=== PATIENT | male | born 1990 | race Caucasian/White ===

== ENCOUNTER 2024-02-05 13:26 | Inpatient (IN) ==
[2024-02-05] MEDS: KETOROLAC TROMETHAMINE 15 MG/ML VIAL IV STA (14:20)
[2024-02-05] MEDS: SODIUM CHLORIDE 0.9% 1,000 ML IV ONE (14:21)
[2024-02-05 15:02] LABS: Appearance Urine Clear (Clear); Bacteria Urine Automated None Seen (None Seen); Bilirubin Urine Negative (Negative); Blood Urine 3+ (Negative); Cast Urine Automated 0-2 /lpf (0-2); Color Urine Yellow; Epithelial Cell Urine Auto 0-2 /hpf (0-2); Glucose Urine UA Negative (Negative); Ketones Urine Trace (Negative); Leukocyte Esterase Urine Negative (Negative); Nitrite Urine Negative (Negative); Protein Urine Negative (Negative); RBC Urine Automated >20 /hpf (0-2); Specific Gravity Urine 1.022 (1.000-1.030); Urobilinogen Urine Negative (Negative); WBC Urine Automated 0-5 /hpf (0-5)
--- NOTE | 2024-02-05 15:02 | Emergency Department Note ---
Impression & Plan Ureterolithiasis, Acute right flank pain ED Provider Note NAME: NAJMA THORPE AGE: 34 SEX: M : 1990 ARRIVES VIA: Walk-In INFORMANT: Patient, ED PROVIDER(S): Brad Sylvester MD CHIEF COMPLAINT: Right-sided flank pain, possible kidney stone MEDICAL DECISION MAKING: Patient presents due to concern for right-sided flank pain IV was established and blood work was obtained. The patient did receive IV fluids IV Toradol and IV Zofran. CT abdomen pelvis performed along with urinalysis. Blood work shows a normal white count H&H and platelet count. The patient's kidney function is unremarkable. AST is 66. Urinalysis does show blood but no signs of infection. The patient CT abdomen pelvis does show 2 mm millimeter distal right ureteral calculus with mild right hydronephrosis. Gallstones noted along with fatty liver. No right upper quadrant pain. With informed the patient of the findings. The patient was still having associated pain and nausea with vomiting. Patient had initially been treated via triage protocols prior to me seeing the patient. The patient did receive IV morphine IV Zofran and IV fluids. Patient was still having pain and was ordered IV fentanyl and Reglan. Patient was still having vomiting. Given these concerns I did speak with the on-call hospital service Dr. Jones and the patient was admitted to medicine service Discussion w/ other healthcare providers: Dr. Jones inpatient medicine service Prior /Outside records reviewed: None Differential diagnosis: Renal colic, UTI, pyelonephritis, appendicitis, diverticulitis, strain, sprain, fracture among others were considered. Diagnostics, as interpreted by me: ECG: None Cardiac monitoring: An order was placed for continuous cardiac monitoring. The monitor shows a rate of 88 with sinus rhythm. Patient was placed on pulse oximetry Medical decision rules: None Imaging studies: I informally interpreted the patient's CT abdomen and pelvis that showed distal right ureteral stone with formal report to follow. HPI: Patient presents due to concern for right-sided flank pain associated nausea vomiting. Patient states that this started around lunchtime. The patient thought that he was having kidney stone but no prior history. No blood in the urine but has had increased urinary frequency. No falls or trauma. Patient denies any chest pain shortness of breath he had associated chills but no fevers. No dysuria. PAST MEDICAL HISTORY: See Below PAST SURGICAL HISTORY: See Below SOCIAL HISTORY: See Below HOME MEDICATIONS: See Below ALLERGIES: See Below VITALS: See Below PHYSICAL EXAMINATION: GENERAL: Mildly ill in appearance with an emesis bag in hand. EYE EXAM: Normal conjunctiva. PERRL, no anisocoria and EOM's grossly intact w/o pain. OROPHARYNX: Moist mucus membranes, grossly normal dentition. NECK: Trachea midline, no stridor. Supple, no nuchal rigidity, no adenopathy, non-tender. No signs of meningismus. FROM of the neck with good chin to chest and neck extension. LUNGS: Clear to auscultation. Normal chest wall mechanics. HEART: NSR, no MRG. ABDOMEN: Abdomen soft, right lower abdominal pain, no masses, no rebound or guarding. BACK: Right-sided CVA TTP. No midline pain. SKIN: No rashes and no bruising. UPPER EXTREMITIES: Upper extremities are grossly normal. LOWER EXTREMITIES: Grossly normal, no edema. NEURO EXAM: A&O x3, cranial nerves II-XII grossly intact, normal speech, moves all 4 extremities. Past Med/Surg History Problem List Vitamin D deficiency Elevated transaminase level Acute right flank pain (Acute) Ureterolithiasis (Acute) Plica syndrome of right knee Patellofemoral arthralgia of right knee Acute medial meniscus tear of right knee Atopic dermatitis Medical History Lyme disease (01/2021) Surgical History History of appendectomy (2009) Family History Grandfather (Maternal) Lung cancer Grandfather (Paternal) No problems noted. Grandmother (Paternal) Diabetes Uncle Diabetes Father Elevated PSA Mother No problems noted. 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 Required: No Beliefs That Will Affect Care: None marital status: Current Living Situation: Spouse current occupational status: employed How many Children do You have: 0 How many Children do You have 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: Yes Safety Concerns: Feels Safe At This Time Childhood Exposure to Second-Hand Smoke: No Diet: regular Diet Comment: regular caffeine: Yes (coffee- tea ) during the past year weight has: remained stable Dental Care, Regularly: Yes Physical Activity Frequency: Daily 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 Sunscreen Use: Yes Assistive Devices: None Allergies Allergies Allergy/AdvReac Type Severity Reaction Status Date / Time apple Allergy Intermediate UPSET Verified 02/22/23 06:59 STOMACH, VOMITING house dust Allergy Intermediate SNEEZING, Verified 02/22/23 06:59 CONGESTION mold Allergy Intermediate SNEEZING, Verified 02/22/23 06:59 CONGESTION No Known Drug Allergies Allergy Unknown Unverified 02/22/23 07:08 Home Meds Home Medications Medication Instructions Recorded Confirmed acetaminophen 500 mg tablet 1,000 mg PO DIRECTED PRN 02/06/21 02/22/23 (Tylenol Extra Strength) FEVER/PAIN naproxen 500 mg tablet 500 mg PO BID PRN pain 02/22/23 Previous Rx's Medication Instructions Recorded ondansetron HCl 4 mg tablet 4 mg PO TID PRN nausea and 02/05/24 vomiting 5 days #15 tabs oxycodone 5 mg tablet 5 mg PO Q8H PRN pain #6 tabs 02/05/24 tamsulosin 0.4 mg capsule (Flomax) 0.4 mg PO HS #5 caps 02/05/24 Results & Data (ED) Vital Signs Vital Signs - 24 hr 02/05/24 13:28 Temperature 36.3 C L Temperature Source Temporal Artery Scan Pulse Rate 92 H Respiratory Rate 20 Blood Pressure 148/92 H Blood Pressure Mean 110 Pulse Oximetry 99 Sepsis Recent Fever Within 48 Hours No Sepsis New/Unexplained Change in Mental Status N/A Sepsis Action Taken by Nursing No Action Required Home Medications Current Medication List: was personally reviewed by me Laboratory Data Attestation: I reviewed the patient's lab results. 02/05/24 14:22 02/06/24 08:06 Lab Results 02/05/24 02/05/24 Range/Units 14:17 14:22 WBC 5.28 (4.8-10.8) K/ul RBC 5.02 (4.70-6.10) M/uL Hgb 15.1 (14.0-18.0) g/dl Hct 44.3 (42.0-52.0) % MCV 88.2 (80.0-100.0) fL MCH 30.1 (25.0-34.0) pg MCHC 34.1 (32.0-36.0) g/dL RDW Std Deviation 39.6 (36.4-46.3) fL RDW Coeff of Sandra 12.3 (11.5-14.5) % Plt Count 290 (130-400) K/uL MPV 9.5 (9.4-12.4) fL Immature Gran % (Auto) 1.5 % Neut % (Auto) 50.2 % Lymph % (Auto) 33.3 % [place] % (Auto) 12.1 % Eos % (Auto) 2.5 % Baso % (Auto) 0.4 % Neut # (Auto) 2.65 (1.40-6.50) K/uL Lymph # (Auto) 1.76 (1.20-3.40) K/uL [place] # (Auto) 0.64 H (0.11-0.59) K/uL Eos # (Auto) 0.13 (0.00-0.50) K/uL Baso # (Auto) 0.02 (0.00-0.20) K/uL Immature Gran # (Auto) 0.08 (0.01-0.20) K/uL Sodium 141 (136-145) mmol/L Potassium 3.7 (3.5-5.1) mmol/L Chloride 103 (98-107) mmol/L Carbon Dioxide 30 (21-32) mmol/L Anion Gap 8 (3-11) BUN 10 (6-23) mg/dl Creatinine 1.03 (0.6-1.4) mg/dl Est Cr Clr Drug Dosing 133.5 ml/min Est GFR ( Amer) 110.1 ml/min Est GFR (Non-Af Amer) 95.0 ml/min BUN/Creatinine Ratio 9.7 L (10-20) Glucose 128 H (70-99(Fasting)) mg/dl Calcium 10.0 (8.6-10.3) mg/dl Total Bilirubin 0.7 (0.2-1.0) mg/dl AST 34 (13-39) U/L ALT 66 H (7-52) U/L Alkaline Phosphatase 76 (34-104) U/L Total Protein 7.5 (6.0-8.3) gm/dl Albumin 4.6 (3.4-5.0) gm/dl Globulin 2.9 (2.5-4.0) gm/dl Albumin/Globulin Ratio 1.6 (0.9-2) Urine Color Yellow Urine Appearance Clear (Clear) Urine pH 5.0 (4.5-7.5) Ur Specific [place] 1.022 (1.000-1.030) Urine Protein Negative (Negative) Urine Glucose (UA) Negative (Negative) Urine Ketones Trace H (Negative) Urine Blood 3+ H (Negative) Urine Nitrite Negative (Negative) Urine Bilirubin Negative (Negative) Urine Urobilinogen Negative (Negative) Ur Leukocyte Esterase Negative (Negative) Urine WBC (Auto) 0-5 (0-5) /hpf Urine RBC (Auto) >20 H (0-2) /hpf U Hyaline Cast (Auto) 0-2 (0-2) /lpf U Epithel Cells (Auto) 0-2 (0-2) /hpf Urine Bacteria (Auto) None Seen (None Seen) Administered Medications Acetaminophen (Acetaminophen 500 Mg Tab) 1,000 mg PO Q8H [facility] Stop: 03/06/24 21:59 Last Admin: 02/06/24 05:24 Dose: 1,000 mg Documented By: Admin: 02/05/24 22:07 Dose: 1,000 mg Documented By: PLF Hydromorphone HCl (Hydromorphone Inj 0.5 Mg/0.5 Ml Syr) 0.5 mg IV Q2H PRN PRN Reason: Pain <6/10 Stop: 02/19/24 21:21 Last Admin: 02/06/24 07:18 Dose: 0.5 mg Documented By: Admin: 02/05/24 23:03 Dose: 0.5 mg Documented By: MAI Lactated Ringer's (Lr) 1,000 mls @ 125 mls/hr IV .Q8H ARJUN Stop: 02/06/24 18:57 Last Admin: 02/06/24 04:37 Dose: 150 mls/hr Documented By: Infusion: 02/06/24 04:37 Dose: Infused Documented By: Admin: 02/05/24 22:08 Dose: 150 mls/hr Documented By: PLF Melatonin (Melatonin 3 Mg Tab) 3 mg PO HS PRN PRN Reason: Insomnia Stop: 03/06/24 21:21 Last Admin: 02/05/24 22:07 Dose: 3 mg Documented By: PLF Discontinued Medications Fentanyl Citrate (Fentanyl Citrate Pf 100 Mcg/2 Ml Vial) 75 mcg IV NOW STA Stop: 02/05/24 17:58 Last Admin: 02/05/24 18:38 Dose: 75 mcg Documented By: DAMIEN Sodium Chloride (Nss) 500 mls @ 999 mls/hr IV .Q31M STA Stop: 02/05/24 14:03 Last Infusion: 02/05/24 15:29 Dose: Infused Documented By: Admin: 02/05/24 15:29 Dose: 999 mls/hr Documented By: ALLEY Sodium Chloride (Nss) 1,000 mls @ 999 mls/hr IV .Q1H1M ONE Stop: 02/05/24 15:10 Last Infusion: 02/05/24 15:29 Dose: Infused Documented By: Admin: 02/05/24 14:21 Dose: 999 mls/hr Documented By: CARLOS Sodium Chloride (Nss) 500 mls @ 999 mls/hr IV .Q31M ONE Stop: 02/05/24 17:36 Last Infusion: 02/05/24 18:46 Dose: Infused Documented By: Admin: 02/05/24 17:16 Dose: 999 mls/hr Documented By: DAMIEN Prochlorperazine (Compazine) 2 mls @ 1 mls/min IV ONE ONE Stop: 02/05/24 17:58 Last Admin: 02/05/24 18:38 Dose: 1 mls/min Documented By: DAMIEN Ketorolac Tromethamine (Ketorolac Tromethamine 15 Mg/Ml Vial) 15 mg IV ONE STA Stop: 02/05/24 13:34 Last Admin: 02/05/24 14:20 Dose: 15 mg Documented By: CARLOS Ketorolac Tromethamine (Ketorolac 30 Mg/Ml Vial) 30 mg IV NOW ONE Stop: 02/05/24 20:21 Last Admin: 02/05/24 20:41 Dose: 30 mg Documented By: DAMIEN Morphine Sulfate (Morphine Sulfate 10 Mg/Ml Carp/Vial) 6 mg IV NOW STA Stop: 02/05/24 17:07 Last Admin: 02/05/24 17:15 Dose: 6 mg Documented By: DAMIEN Ondansetron HCl (Ondansetron Inj 2 Mg/Ml 2 Ml Vial) 4 mg IV NOW STA Stop: 02/05/24 17:07 Last Admin: 02/05/24 17:15 Dose: 4 mg Documented By: DAMIEN Imaging Data Radiologist's Impression: Abdomen/Pelvis CT 02/05/24 14:10 CT OF THE ABDOMEN AND PELVIS WITHOUT CONTRAST CLINICAL HISTORY: Right flank pain. COMPARISON STUDY: Right upper quadrant ultrasound June 24, 2012 and MRCP August 05, 2012. TECHNIQUE: Axial images of the abdomen and pelvis were obtained without IV contrast. Images were reviewed in the axial, sagittal, and coronal planes. Automated exposure control was utilized for the study. A dose lowering technique was utilized adhering to the principles of ALARA. FINDINGS: Lung bases are unremarkable. No pneumatosis, free air or portal venous gas is present. A small 2 mm distal right ureteral calculus just proximal to the ureterovesical juncture results in mild right hydronephrosis. No additional urinary calculi identified. Small gallstone within the gallbladder is present. The gallbladder is not distended. There is no pericholecystic infiltration. Hepatic steatosis is noted with geographic areas of sparing. Unenhanced images of the spleen, adrenal glands and pancreas are unremarkable. The appendix is not visualized. There is no evidence for a bowel obstruction. Submucosal fat deposition within the colon is chronic. There is no lymphadenopathy. IMPRESSION: 1. 2 mm distal right ureteral calculus results in mild right hydronephrosis. 2. Cholelithiasis. 3. Hepatic steatosis. ACT 112: Negative or not required by law. Electronically signed by: Felix Armstrong M.D. 02/05/2024 4:21 PM Discharge Plan Visit Data Chief Complaint: Urinary Symptoms Stated Complaint: possible kidney stone, back pain, frequent urinati ED Provider: Brad Sylvester Discharge Problem: Ureterolithiasis, Acute right flank pain Patient Disposition: Admitted As Inpatient Discharge Instructions Interventions: ED Discharge Assessment Last Done: 02/05/24 20:25
[2024-02-05 15:06] LABS: Albumin Globulin Ratio 1.6 (0.9-2); Albumin Level 4.6 gm/dl (3.4-5.0); BUN Creatinine Ratio 9.7 (10-20); Bilirubin,Total 0.7 mg/dl (0.2-1.0); Creatinine Clr Calc Pharmacy 133.5 ml/min; Est GFR (African American) 110.1 ml/min; Globulin 2.9 gm/dl (2.5-4.0); Potassium 3.7 mmol/L (3.5-5.1); Total Protein 7.5 gm/dl (6.0-8.3)
[2024-02-05 15:18] LABS: Basophils # (auto) 0.02 K/uL (0.00-0.20); Basophils % (auto) 0.4 %; Eosinophils # (auto) 0.13 K/uL (0.00-0.50); Eosinophils % (auto) 2.5 %; Hematocrit (blood only) 44.3 % (42.0-52.0); Hemoglobin 15.1 g/dl (14.0-18.0); Immature Granulocytes # (auto) 0.08 K/uL (0.01-0.20); Immature Granulocytes % (auto) 1.5 %; Lymphocytes # (auto) 1.76 K/uL (1.20-3.40); Lymphocytes % (auto) 33.3 %; Mean Corpuscular Hemoglobin 30.1 pg (25.0-34.0); Mean Corpuscular Hgb Conc 34.1 g/dL (32.0-36.0); Mean Corpuscular Volume 88.2 fL (80.0-100.0); Mean Platelet Volume 9.5 fL (9.4-12.4); Monocytes # (auto) 0.64 K/uL (0.11-0.59); Monocytes % (auto) 12.1 %; Neutrophils # (auto) 2.65 K/uL (1.40-6.50); Neutrophils % (auto) 50.2 %; Platelet Count 290 K/uL (130-400); RDW Coefficient of Variation 12.3 % (11.5-14.5); RDW Standard Deviation 39.6 fL (36.4-46.3); Red Blood Count 5.02 M/uL (4.70-6.10); White Blood Count 5.28 K/ul (4.8-10.8)
[2024-02-05] MEDS: SODIUM CHLORIDE 0.9% 500 ML IV STA (15:29)
--- NOTE | 2024-02-05 16:22 | CT Scan Report ---
CT OF THE ABDOMEN AND PELVIS WITHOUT CONTRAST CLINICAL HISTORY: Right flank pain. COMPARISON STUDY: Right upper quadrant ultrasound June 24, 2012 and MRCP August 05, 2012. TECHNIQUE: Axial images of the abdomen and pelvis were obtained without IV contrast. Images were revi ewed in the axial, sagittal, and coronal planes. Automated exposure control was utilized for the brianna dy. A dose lowering technique was utilized adhering to the principles of ALARA. FINDINGS: Lung bases are unremarkable. No pneumatosis, free air or portal venous gas is present. A sm all 2 mm distal right ureteral calculus just proximal to the ureterovesical juncture results in mild right hydronephrosis. No additional urinary calculi identified. Small gallstone within the gallbladde r is present. The gallbladder is not distended. There is no pericholecystic infiltration. Hepatic chavez atosis is noted with geographic areas of sparing. Unenhanced images of the spleen, adrenal glands and pancreas are unremarkable. The appendix is not visualized. There is no evidence for a bowel obstruct ion. Submucosal fat deposition within the colon is chronic. There is no lymphadenopathy. IMPRESSION: 1. 2 mm distal right ureteral calculus results in mild right hydronephrosis. 2. Cholelithiasis. 3. Hepatic steatosis. ACT 112: Negative or not required by law. Electronically signed by: Felix Armstrong M.D. 02/05/2024 4:21 PM
[2024-02-05] MEDS: ONDANSETRON INJ 2 MG/ML 2 ML VIAL IV STA (17:15)
[2024-02-05] MEDS: MoRPHine SULFATE 10 MG/ML CARP/VIAL IV STA (17:15)
[2024-02-05] MEDS: SODIUM CHLORIDE 0.9% 500 ML IV ONE (17:16)
--- NOTE | 2024-02-05 18:35 | History & Physical Report ---
Date of Service February 05, 2024 Assessment & Plan (1) Ureterolithiasis: (2) Acute right flank pain: (3) Elevated transaminase level: Plan 34 yo male no significant PMHx presented to ED with R sided flank pain and nausea that began this afternoon around lunchtime found to have 2mm ureterolith in distal portion of the R ureter with mild R hydronephrosis. #Ureterolithiasis Pain control Tylenol 1000mg Q8h danie; Toradol 15mg q6h PRN, Dilaudid 1mg q2h PRN Flomax Strain urine monitor kidney fx anticipate spontaneous passage #Elevated AST Gallstones identified on CT Asymptomatic, follw as outpatient FENGI: regular Code status: full DVT prophylaxis: encourage ambulation Isolation: none Disposition: med/surg History of Present Illness Primary Care Provider: Amaya Jung DO 34 yo male presented to ED with R sided flank pain and nausea that began this afternoon around lunchtime found to have 2mm ureterolith in distal portion of the R ureter with mild R hydronephrosis. No history of kidney stones in the past. No gross hematuria. ED Course: CTAP with above findings UA + for blood, otherwise negative for signs of infection Rec'd morphine, zofran, IVF, compazine, fentanyl AST elevated at 66, gallstones + hepatosteatosis noted on CT Allergies Allergy/AdvReac Type Severity Reaction Status Date / Time apple Allergy Intermediate UPSET Verified 02/22/23 06:59 STOMACH, VOMITING house dust Allergy Intermediate SNEEZING, Verified 02/22/23 06:59 CONGESTION mold Allergy Intermediate SNEEZING, Verified 02/22/23 06:59 CONGESTION No Known Drug Allergies Allergy Unknown Unverified 02/22/23 07:08 Home Medications Medication Instructions Recorded Confirmed Type acetaminophen 500 mg tablet 1,000 mg PO DIRECTED PRN 02/06/21 02/22/23 History (Tylenol Extra Strength) FEVER/PAIN naproxen 500 mg tablet 500 mg PO BID PRN pain 02/22/23 History ondansetron HCl 4 mg tablet 4 mg PO TID PRN nausea and 02/05/24 Rx vomiting 5 days #15 tabs oxycodone 5 mg tablet 5 mg PO Q8H PRN pain #6 tabs 02/05/24 Rx tamsulosin 0.4 mg capsule (Flomax) 0.4 mg PO HS #5 caps 02/05/24 Rx Past Med/Surg History Problem List (Updated 02/05/24 @ 18:34 by Suleiman Woodard DO) Elevated transaminase level Acute right flank pain (Acute) Ureterolithiasis (Acute) Plica syndrome of right knee Patellofemoral arthralgia of right knee Acute medial meniscus tear of right knee Atopic dermatitis Medical History Atopic dermatitis Lyme disease (01/2021) Surgical History History of appendectomy (2009) Family History Grandfather (Maternal) Lung cancer Grandfather (Paternal) No problems noted. Grandmother (Paternal) Diabetes Uncle Diabetes Father Elevated PSA Mother No problems noted. Denies family history of Ovarian cancer Prostate cancer Myocardial infarction Breast cancer Colorectal cancer Social History Smoking Status: Never smoker Second Hand Exposure: No; Do You Dip or Chew Tobacco: No; Hx Alcohol Use: Yes Alcohol type: beer Alcohol Intake Frequency: 2-3 x/Week Hx Substance Use: No Preferred Language: Mohawk Communication Ability: Effective Visual Impairment: No Limitations Hearing Ability: Normal Pad Machine Operator Required: No Beliefs That Will Affect Care: None marital status: Current Living Situation: Spouse current occupational status: employed How many Children do You have: 0 How many Children do You have 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[employer] Feels Safe at Home: Yes Safety Concerns: Feels Safe At This Time Childhood Exposure to Second-Hand Smoke: No Diet: regular Diet Comment: regular caffeine: Yes (coffee- tea ) during the past year weight has: remained stable Dental Care, Regularly: Yes Physical Activity Frequency: Daily 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 Sunscreen Use: Yes Assistive Devices: None Review of Systems Review of Systems: reviewed, per HPI Physical Exam Physical Exam: Constitutional: well-appearing, appears uncomfortable HEENT: NCAT CV: extremities well-perfused, no LE edema Resp: no increased work of breathing GI: soft, nondistended, nontender MSK: no gross deformities appreciated Skin: warm, dry, no rash appreciated Neuro: alert, oriented, no focal neurologic deficit appreciated Results & Data Results & Data Vital Signs (Past 12 Hours) Vital Signs Temp Pulse Resp BP Pulse Ox 02/05/24 13:28 36.3 C L 92 H 20 148/92 H 99 Supervising Physician Co-Signing Physician Notes I personally saw and examined the patient. I verified all [place] points and agree with resident physician Dr Woodard, with the following exceptions and/or additions: 34 year old male presents to the ER with right flank pain starting around lunchtime today. O/E HS RRR, no murmurs, Chest CTAB, Abdo SNT, right CVA tenderness A/P Ureterolithiasis - IV fluids, regular acetaminophen, Toradol 2nd line, Dilaudid 3rd line, strain all urine Resident Activity Tracking Resident Involvement: Resident Care Provided Care Provided: Adult Hospital Medicine
[2024-02-05] MEDS: PROCHLORPERAZINE 2 ML IV ONE (18:38)
[2024-02-05] MEDS: fentaNYL citrate PF 100 MCG/2 ML VIAL IV STA (18:38)
[2024-02-05] MEDS: KETOROLAC 30 MG/ML VIAL IV ONE (20:41)
[2024-02-05] MEDS ORDERED: ALUMINUM/MAGNESIUM SUSP 30 ML UDC PO PRN (21:22)
[2024-02-05] MEDS ORDERED: KETOROLAC 30 MG/ML VIAL IV PRN (21:22)
[2024-02-05] MEDS ORDERED: ONDANSETRON INJ 2 MG/ML 2 ML VIAL IV PRN (21:22)
[2024-02-05] MEDS ORDERED: POLYETHYLENE (MIRALAX) 17 GM PACK PO PRN (21:22)
[2024-02-05] MEDS ORDERED: ACETAMINOPHEN 325 MG TAB PO PRN (21:22)
[2024-02-05] MEDS ORDERED: MAGNESIUM HYDROXIDE SUSP 30 ML UDC PO PRN (21:22)
[2024-02-05] MEDS: ACETAMINOPHEN 500 MG TAB PO SCH (22:07)
[2024-02-05] MEDS: MELATONIN 3 MG TAB PO PRN (22:07)
[2024-02-05] MEDS: LACTATED RINGER'S 1,000 ML IV SCH (22:08)
[2024-02-05] MEDS: HYDROmorphone INJ 0.5 MG/0.5 ML SYR IV PRN (23:03)
--- NOTE | 2024-02-06 08:00 | Hospitalist Progress Note ---
Date of Service February 06, 2024 Assessment & Plan (1) Ureterolithiasis: Plan: 34 yo male no significant PMHx presented to ED with R sided flank pain and nausea that began afternoon 6/12 around lunchtime CTAP w/ 2mm ureterolith in distal portion of the R ureter with mild R hydronephrosis. Placed on IVF, pain control on admission Cr bumped to 1.45 today. BUN15 (was 10). No fever to suggest infection at this time but can monitor/repeat urine if needed Toradol placed on hold (was provided 15mg IV x 1, 30mg IV x 1 on admission) Dilaudid IV available, added PO oxycodone to avoid NSAIDs given ANURADHA Continue IVF Monitor I&O Continue to srain urine, send stone for analysis as able Encouraged avoidance of teas, can try lemonade to help to dissolve Flomax 0.4mg x 1 now (however limited benefit in stones >5mm but will try), continue daily Consult placed for Urology given ANURADHA however will avoid nephrotoxins at present time/renal dose meds as able and continue IVF and expulsive therapy and hopefully able to pass w/ conservative management Vit D level checked given kidney stone (although no prior hx, but does have gallstones) and was low, replacement ordered. Monitor labs/renal function/output Discussed if able to pass stone tonight could consider discharge with outpatient follow up but will monitor at this time (2) Acute right flank pain: Plan: suspect 2nd to stone as above does have kidney stones but no scapular pain and no RUQ pain on exam but will monitor (3) Elevated transaminase level: Plan: #Elevated AST (?alcohol use, will need to inquire) Gallstones identified on CT Asymptomatic, follow as outpatient can monitor w/ AM labs (4) Vitamin D deficiency: Plan: checked due to ca borderline 10.0 w/ stone and normal albumin. Vit D LOW 13.3, po replacement started/continue at dc (5) Acute kidney injury: Plan: Cr to 1.45 w/ normal baseline IVF as above, avoid nephrotoxins DC'd further NSAIDs Repeat UA ordered but no fever and no abx at this time Urology consulted as above BMP in AM (or sooner if potential dc) Plan continued inpatient stay for now but if able to pass stone/pain resolved following can plan for potential dc tonight. urology consulted to weigh in given Anuradha but again stone is very small and hopefully Peyman able to pass this on his own Admission and Anticipated Discharge Date Admission Date: February 05, 2024 Supervising Physician Co-Signing Physician Notes The patient was not seen by me. The chart was reviewed. Case discussed with RODRIGO Avelar. Agree with assessment and plan Subjective Evaluated this morning, sitting up in bed, tolerating diet. Pain about 5/10, R sided CVA tenderness. Making good urine but not passing stone just yet. Discussed consult placed for urology however had not been provided flomax and hopefully continued IVF and expulsive therapy and if able to pass stone on own can dc later this afternoon. Can repeat labs to ensure renal function improved prior to dc but discussed avoiding further toradol for now. No prior hx kidney stones. Does like tea, raspberry, has had increased caffeine intake w/ of child recently too. Encouraged avoiding excessive tea, encourage lemonade to help dissolve. Nursing continuing to strain urine at this time. No fever/chills, chest pain, shortness of breath. Questions/concerns addressed at this time. Physical Exam Physical Exam: Constitutional: 34yo male sitting up in bed, NAD, reports feeling a little better but still hasn't passed stone Head atraumatic, normocephalic, mmm, trachea midline Resp: even/unlabored, no w/c/r, on room air CV: RRR, no pitting edema/calf tenderness GI: +BS, soft/NT : R CVA tenderness, no oscar MSK/Neuro: non focal, answering questions, no slurred speech/facial droop Psych: AOx3, cooperative with exam Results & Data Results & Data Vital Signs (Past 12 Hours) Vital Signs Temp Pulse Resp BP Pulse Ox O2 Del Method 02/05/24 21:51 36.7 C 75 16 145/75 H 95 Room Air 02/05/24 20:43 65 18 134/72 96 Room Air 02/05/24 20:25 Room Air Laboratory Results 02/06/24 02/05/24 02/05/24 Range/Units 08:06 14:22 14:17 WBC 5.28 (4.8-10.8) K/ul RBC 5.02 (4.70-6.10) M/uL Hgb 15.1 (14.0-18.0) g/dl Hct 44.3 (42.0-52.0) % MCV 88.2 (80.0-100.0) fL MCH 30.1 (25.0-34.0) pg MCHC 34.1 (32.0-36.0) g/dL RDW Std Deviation 39.6 (36.4-46.3) fL RDW Coeff of Sandra 12.3 (11.5-14.5) % Plt Count 290 (130-400) K/uL MPV 9.5 (9.4-12.4) fL Immature Gran % (Auto) 1.5 % Neut % (Auto) 50.2 % Lymph % (Auto) 33.3 % Dewey % (Auto) 12.1 % Eos % (Auto) 2.5 % Baso % (Auto) 0.4 % Neut # (Auto) 2.65 (1.40-6.50) K/uL Lymph # (Auto) 1.76 (1.20-3.40) K/uL Dewey # (Auto) 0.64 H (0.11-0.59) K/uL Eos # (Auto) 0.13 (0.00-0.50) K/uL Baso # (Auto) 0.02 (0.00-0.20) K/uL Immature Gran # (Auto) 0.08 (0.01-0.20) K/uL Sodium 139 141 (136-145) mmol/L Potassium 4.1 3.7 (3.5-5.1) mmol/L Chloride 105 103 (98-107) mmol/L Carbon Dioxide 29 30 (21-32) mmol/L Anion Gap 5 8 (3-11) BUN 15 10 (6-23) mg/dl Creatinine 1.45 H D 1.03 (0.6-1.4) mg/dl Est Cr Clr Drug Dosing 95.1 133.5 ml/min Est GFR ( Amer) 72.8 110.1 ml/min Est GFR (Non-Af Amer) 62.8 95.0 ml/min BUN/Creatinine Ratio 10.3 9.7 L (10-20) Glucose 121 H 128 H (70-99(Fasting)) mg/dl Calcium 8.8 10.0 (8.6-10.3) mg/dl Magnesium 1.7 (1.7-2.4) mg/dl Total Bilirubin 0.7 (0.2-1.0) mg/dl AST 34 (13-39) U/L ALT 66 H (7-52) U/L Alkaline Phosphatase 76 (34-104) U/L Total Protein 7.5 (6.0-8.3) gm/dl Albumin 4.6 (3.4-5.0) gm/dl Globulin 2.9 (2.5-4.0) gm/dl Albumin/Globulin Ratio 1.6 (0.9-2) 25-OH Vitamin D Total 13.3 L (30-100) ng/ml Urine Color Yellow Urine Appearance Clear (Clear) Urine pH 5.0 (4.5-7.5) Ur Specific Aylett 1.022 (1.000-1.030) Urine Protein Negative (Negative) Urine Glucose (UA) Negative (Negative) Urine Ketones Trace H (Negative) Urine Blood 3+ H (Negative) Urine Nitrite Negative (Negative) Urine Bilirubin Negative (Negative) Urine Urobilinogen Negative (Negative) Ur Leukocyte Esterase Negative (Negative) Urine WBC (Auto) 0-5 (0-5) /hpf Urine RBC (Auto) >20 H (0-2) /hpf U Hyaline Cast (Auto) 0-2 (0-2) /lpf U Epithel Cells (Auto) 0-2 (0-2) /hpf Urine Bacteria (Auto) None Seen (None Seen) Diagnostic Findings Abdomen/Pelvis CT 02/05/24 14:10 CT OF THE ABDOMEN AND PELVIS WITHOUT CONTRAST CLINICAL HISTORY: Right flank pain. COMPARISON STUDY: Right upper quadrant ultrasound June 24, 2012 and MRCP August 05, 2012. TECHNIQUE: Axial images of the abdomen and pelvis were obtained without IV contrast. Images were reviewed in the axial, sagittal, and coronal planes. Automated exposure control was utilized for the study. A dose lowering technique was utilized adhering to the principles of ALARA. FINDINGS: Lung bases are unremarkable. No pneumatosis, free air or portal venous gas is present. A small 2 mm distal right ureteral calculus just proximal to the ureterovesical juncture results in mild right hydronephrosis. No additional urinary calculi identified. Small gallstone within the gallbladder is present. The gallbladder is not distended. There is no pericholecystic infiltration. Hepatic steatosis is noted with geographic areas of sparing. Unenhanced images of the spleen, adrenal glands and pancreas are unremarkable. The appendix is not visualized. There is no evidence for a bowel obstruction. Submucosal fat deposition within the colon is chronic. There is no lymphadenopathy. IMPRESSION: 1. 2 mm distal right ureteral calculus results in mild right hydronephrosis. 2. Cholelithiasis. 3. Hepatic steatosis. ACT 112: Negative or not required by law. Electronically signed by: Felix Armstrong M.D. 02/05/2024 4:21 PM PG Care Time/CCT Total # of Minutes Spent Total Time Spent with Patient: Total time spent is greater than 50% in coordination of care (as documented) at patient's floor/unit and/or counseling patient: Coding Level of Care Code 89944 SUB INP/OBS CARE 2/35MIN Diagnoses Ureterolithiasis N20.1 Acute right flank pain R10.9 Elevated transaminase level R74.01 Vitamin D deficiency E55.9 Acute kidney injury N17.9
--- NOTE | 2024-02-06 08:28 | Billing Data ---
Date of Service February 05, 2024 Coding Level of Care Code 48364 INT INP/OBS CARE
[2024-02-06 08:47] LABS: BUN Creatinine Ratio 10.3 (10-20); Calcium 8.8 mg/dl (8.6-10.3); Creatinine Clr Calc Pharmacy 95.1 ml/min; Est GFR (African American) 72.8 ml/min; Est GFR (Non-African American) 62.8 ml/min; Magnesium 1.7 mg/dl (1.7-2.4); Potassium 4.1 mmol/L (3.5-5.1)
[2024-02-06] MEDS: TAMSULOSIN HCL 0.4 MG CAP PO ONE (11:13)
[2024-02-06] MEDS: oxyCODONE HCL IR 5 MG TAB (IMMEDIATE RELEASE) PO PRN ×2 (11:17→16:13)
[2024-02-06] MEDS: HYDROmorphone INJ 1 MG/ML SYRINGE IV PRN (12:53)
[2024-02-06] MEDS ORDERED: oxyBUTYnin chloride 5 MG TAB PO PRN (13:40)
[2024-02-06 13:48] LABS: Appearance Urine Clear (Clear); Bilirubin Urine Negative (Negative); Blood Urine Negative (Negative); Color Urine Yellow; Glucose Urine UA Negative (Negative); Ketones Urine Negative (Negative); Leukocyte Esterase Urine Negative (Negative); Nitrite Urine Negative (Negative); Protein Urine Negative (Negative); Specific Gravity Urine 1.009 (1.000-1.030); Urobilinogen Urine Negative (Negative); pH Urine 7.5 (4.5-7.5)
[2024-02-06] MEDS ORDERED: HYDROmorphone INJ 0.5 MG/0.5 ML SYR IV PRN (14:18)
--- NOTE | 2024-02-06 15:51 | XRay Report ---
KUB CLINICAL HISTORY: Kidney stone. COMPARISON STUDY: CT of the abdomen and pelvis February 05, 2024. FINDINGS: Bowel gas pattern is normal. No renal calculi are present. Pelvic calcifications favor phle boliths. The small 2 mm distal right ureteral calculus shown on CT of February 05, 2024 is not definitive ly identified although may be occult by radiography. IMPRESSION: No urinary calculi identified. The 2 mm distal right ureteral calculus on CT is not evid ent on this study although could be radiographically occult. ACT 112: Negative or not required by law. Electronically signed by: Felix Armstrong M.D. 02/06/2024 3:47 PM
--- NOTE | 2024-02-06 15:58 | Urology Consultation ---
Date of Consultation February 06, 2024 Assessment & Plan (1) Acute right flank pain: (2) Ureterolithiasis: (3) Acute kidney injury: Plan 34yo/M who presented with right flank pain with associated nausea and found to have an obstructing 2 mm distal right ureteral stone with mild hydronephrosis. -Patient afebrile and hemodynamically stable -Creatinine 1.45 today. -UA not suspicious for infection. -Discussed options for acute stone management with cystoscopy and ureteral stent placement. -Ureteral stents were discussed as well as postoperative issues and pain management. -Discussed possibility of multiple procedures. -Discussed outpatient option for trial of passage with max expulsion medical therapy -Stone passage rates given size and location were reviewed. -Risks/benefits of each discussed -Patient prefers trial of passage -His stone is small enough that he has a good chance of spontaneous passage. -He will try medical expulsive therapy with pain control, tamsulosin, hydration. Encouraged pt to strain all urine. -No plan for acute intervention. -OK for d/c from standpoint. -Reviewed in detail signs/symptoms that would warrant return to the hospital, patient verbalized an understanding. -We can arrange outpatient follow-up to ensure the stone has passed or coordinate intervention if it has not. -Urology will follow peripherally. Please call with any questions, concerns, or changes in patient status. History of Present Illness Attending Physician: Kalpesh Valero MD History of Present Illness 34-year-old male who presented to ED 02/05/24 with right sided flank pain and nausea and found to have 2mm distal right ureteral stone with moderate hydronephrosis. On arrival he was afebrile and hemodynamically stable. Labs showing no leukocytosis and normal renal function. Urinalysis 02/05/2024 with blood otherwise negative for signs of infection. ED course morphine, Zofran, Fentanyl. Pt admitted to medicine service. CT abd pelvis - 2 mm distal right ureteral calculus results in mild right hydronephrosis. KUB - No urinary calculi identified. The 2 mm distal right ureteral calculus on CT is not evident on this study although could be radiographically occult. Patient seen at bedside today. Awake, resting in bed on arrival. No acute distress. Pain is currently well-controlled. He denies any noticeable stone passage. Denies fever, chills, nausea, vomiting. Denies hematuria or dysuria. Denies prior history of stones. Denies family history. Allergies Allergy/AdvReac Type Severity Reaction Status Date / Time apple Allergy Intermediate UPSET Verified 02/22/23 06:59 STOMACH, VOMITING house dust Allergy Intermediate SNEEZING, Verified 02/22/23 06:59 CONGESTION mold Allergy Intermediate SNEEZING, Verified 02/22/23 06:59 CONGESTION No Known Drug Allergies Allergy Unknown Unverified 02/22/23 07:08 Home Medications Medication Instructions Recorded Confirmed Type acetaminophen 500 mg tablet 1,000 mg PO DIRECTED PRN 02/06/21 02/22/23 History (Tylenol Extra Strength) FEVER/PAIN naproxen 500 mg tablet 500 mg PO BID PRN pain 02/22/23 History ondansetron HCl 4 mg tablet 4 mg PO TID PRN nausea and 02/05/24 Rx vomiting 5 days #15 tabs oxycodone 5 mg tablet 5 mg PO Q8H PRN pain #6 tabs 02/05/24 Rx tamsulosin 0.4 mg capsule (Flomax) 0.4 mg PO HS #5 caps 02/05/24 Rx Patient History Medical History Lyme disease (01/2021) Surgical History History of appendectomy (2009) Family History Grandfather (Maternal) Lung cancer Grandfather (Paternal) No problems noted. Grandmother (Paternal) Diabetes Uncle Diabetes Father Elevated PSA Mother No problems noted. Denies family history of Ovarian cancer Prostate cancer Myocardial infarction Breast cancer Colorectal cancer Social History Smoking Status: Never smoker Second Hand Exposure: No; Do You Dip or Chew Tobacco: No; Hx Alcohol Use: Yes Alcohol type: beer Alcohol Intake Frequency: 2-3 x/Week Hx Substance Use: No Preferred Language: Bulgarian Communication Ability: Effective Visual Impairment: No Limitations Hearing Ability: Normal Physics Professor Required: No Beliefs That Will Affect Care: None marital status: Current Living Situation: Spouse current occupational status: employed How many Children do You have: 0 How many Children do You have 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 [employer] [facility] Feels Safe at Home: Yes Safety Concerns: Feels Safe At This Time Childhood Exposure to Second-Hand Smoke: No Diet: regular Diet Comment: regular caffeine: Yes (coffee- tea ) during the past year weight has: remained stable Dental Care, Regularly: Yes Physical Activity Frequency: Daily 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 Sunscreen Use: Yes Assistive Devices: None Review of Systems Review of Systems: All systems reviewed & are unremarkable except as noted in HPI & below Physical Exam Constitutional: well developed and well nourished; no acute distress Respiratory: normal respiratory effort; no respiratory distress and no labored breathing Musculoskeletal: Head/Neck/Chest: normocephalic Skin: No visible rashes or lesions to exposed skin areas Neurologic: moves all extremities and awake Psychiatric: A+Ox3, euthymic affect Results & Data Vital Signs (Past 12 Hours) Vital Signs Temp Pulse Resp BP Pulse Ox O2 Del Method 02/06/24 07:35 37.1 C 85 16 128/82 95 Room Air PG Care Time/CCT Total # of Minutes Spent Total Time Spent with Patient: Total time spent is greater than 50% in coordination of care (as documented) at patient's floor/unit and/or counseling patient: Coding Level of Care Code 00230 IN/OBS CONSULT LVL 3,45M Diagnoses Acute right flank pain R10.9 Ureterolithiasis N20.1 Acute kidney injury N17.9
--- NOTE | 2024-02-06 16:25 | Discharge Summary ---
Date of Service February 06, 2024 Admission HPI Per Admitting Provider 34 yo male presented to ED with R sided flank pain and nausea that began this afternoon around lunchtime found to have 2mm ureterolith in distal portion of the R ureter with mild R hydronephrosis. No history of kidney stones in the past. No gross hematuria. ED Course: CTAP with above findings UA + for blood, otherwise negative for signs of infection Rec'd morphine, zofran, IVF, compazine, fentanyl AST elevated at 66, gallstones + hepatosteatosis noted on CT Admission Exam Per Admitting Provider Constitutional: well-appearing, appears uncomfortable HEENT: NCAT CV: extremities well-perfused, no LE edema Resp: no increased work of breathing GI: soft, nondistended, nontender MSK: no gross deformities appreciated Skin: warm, dry, no rash appreciated Neuro: alert, oriented, no focal neurologic deficit appreciated Principal Diagnosis Right sided nephrolithiasis Discharge Exam Constitutional: 34yo male sitting up in bed, NAD, looks improved, at bedside Head atraumatic, normocephalic, mmm, trachea midline Resp: even/unlabored, no w/c/r, on room air CV: RRR, no pitting edema/calf tenderness GI: +BS, soft/NT : no further CVA tenderness (now more R groin), no oscar MSK/Neuro: non focal, answering questions, no slurred speech/facial droop Psych: AOx3, cooperative with exam Discharge Data Allergies Allergy/AdvReac Type Severity Reaction Status Date / Time apple Allergy Intermediate UPSET Verified 02/22/23 06:59 STOMACH, VOMITING house dust Allergy Intermediate SNEEZING, Verified 02/22/23 06:59 CONGESTION mold Allergy Intermediate SNEEZING, Verified 02/22/23 06:59 CONGESTION No Known Drug Allergies Allergy Unknown Unverified 02/22/23 07:08 Consultations 02/05/24 17:58 ED Decision to Admit Stat 02/06/24 09:20 Consult Urology Routine Ordered Studies Abdomen/Pelvis CT 02/05/24 14:10 CT OF THE ABDOMEN AND PELVIS WITHOUT CONTRAST CLINICAL HISTORY: Right flank pain. COMPARISON STUDY: Right upper quadrant ultrasound June 24, 2012 and MRCP August 05, 2012. TECHNIQUE: Axial images of the abdomen and pelvis were obtained without IV contrast. Images were reviewed in the axial, sagittal, and coronal planes. Automated exposure control was utilized for the study. A dose lowering technique was utilized adhering to the principles of ALARA. FINDINGS: Lung bases are unremarkable. No pneumatosis, free air or portal venous gas is present. A small 2 mm distal right ureteral calculus just proximal to the ureterovesical juncture results in mild right hydronephrosis. No additional urinary calculi identified. Small gallstone within the gallbladder is present. The gallbladder is not distended. There is no pericholecystic infiltration. Hepatic steatosis is noted with geographic areas of sparing. Unenhanced images of the spleen, adrenal glands and pancreas are unremarkable. The appendix is not visualized. There is no evidence for a bowel obstruction. Submucosal fat deposition within the colon is chronic. There is no lymphadenopathy. IMPRESSION: 1. 2 mm distal right ureteral calculus results in mild right hydronephrosis. 2. Cholelithiasis. 3. Hepatic steatosis. ACT 112: Negative or not required by law. Electronically signed by: Felix Armstrong M.D. 02/05/2024 4:21 PM KUB X-Ray 02/06/24 14:19 KUB CLINICAL HISTORY: Kidney stone. COMPARISON STUDY: CT of the abdomen and pelvis February 05, 2024. FINDINGS: Bowel gas pattern is normal. No renal calculi are present. Pelvic calcifications favor phleboliths. The small 2 mm distal right ureteral calculus shown on CT of February 05, 2024 is not definitively identified although may be occult by radiography. IMPRESSION: No urinary calculi identified. The 2 mm distal right ureteral calculus on CT is not evident on this study although could be radiographically occult. ACT 112: Negative or not required by law. Electronically signed by: Felix Armstrong M.D. 02/06/2024 3:47 PM Hospital Course (1) Ureterolithiasis: 34 yo male no significant PMHx presented to ED with R sided flank pain and nausea that began afternoon 6/12 around lunchtime CTAP w/ 2mm ureterolith in distal portion of the R ureter with mild R hydronephrosis. Placed on IVF, pain control on admission Cr bumped to 1.45 on repeat, BUN 15 (prior 10). No fever to suggest infection at this time> Repeat UA appearing CLEAR Toradol placed on hold (was provided 15mg IV x 1, 30mg IV x 1 on admission) to AVOID further NSAIDs for now IVF continued @ 125cc/hr, tolerating PO intake Flomax started/continued at discharge KUB on repeat without stone noted however could still be there, did have resolution in CVA tenderness and now more groin and suspect passed to bladder po ssibly Did consult Urology while inpatient given ANURADHA and ok to discharge w/ expulsive therapy with flomax/pain control and they will arrange for outpatient follow up Encouraged hydration, avoidance of teas. Discussed lemonade to help w/ dissolving stones To continue to strain urine, flomax daily, and pain control w/ oxycodone w/ improvement and avoidance of NSAIDs for now given ANURADHA w/ repeat Cr to 1.56 but making urine/clear/no evidence for infection and wanting to go home and ok'd by urology and discussed with supervising provider and instructions discussed with patient. Urology to arrange for outpt f/u Vit D level checked given kidney stone (although no prior hx, but does have gallstones) and was low, replacement ordered. (2) Acute right flank pain: suspect 2nd to stone does have kidney stones but no scapular pain and no RUQ pain on exam but will monitor on repeat eval no further CVA tenderness/flank discomfort and more towards groin region suggesting is passing and likely given size should pass w/ supportive care. Otherwise will need urology f/u tx as outlined above (3) Elevated transaminase level: Elevated AST Gallstones identified on CT Asymptomatic, follow as outpatient ?alcohol use No RUQ pain on exam F/u PCP low fat diet to be encourage (4) Vitamin D deficiency: checked due to ca borderline 10.0 w/ stone and normal albumin. Vit D LOW 13.3, po replacement started/continued at dc (5) Acute kidney injury: Cr to 1.45 w/ normal baseline. IVF provided and repeat UA clear without evidence for obstruction. AVOIDANCE of NSAIDs (and home naproxen recommended for now) Urology consulted as above and ok w/ dc home w/ continued hydration and f/u outpatient if ongoing issues/cysto needed Plan repeat BMP ordered for Saturday to PCP to ensure renal function back to baseline, urine clear in color/repeat UA CLEAN. Good urine output, no blood reported (although did discuss can have some blood w/ passage of stone) discharged home with pain control, flomax. hydration encouraged urology f/u as needed if ongoing issues return to ER if any fever/chills, decreased urine output or worsened/uncontrolled pain Total Time Total Time Spent Total Time Spent (In Minutes): 45 Discharge Plan Discharge Items Patient Disposition: Home - Self-Care Reason For Visit: URETEROLITHIASIS Discharge Diagnosis: RIGHT sided kidney stone Goals: You have been hospitalized for an acute medical problem. During your stay at [facility], we have made an effort to correct the problem that brought you to the hospital while keeping you as comfortable as possible. Medications were used to bring your condition under control and your discharge instructions will include directions for any medications you should take after leaving the hospital. Please make sure you see your Primary Care Provider as part of your follow up plan. Activity: As commented below Non-emergency contact: Primary Care Provider and Urologist Call non-emergency contact if: you have any medication questions, your symptoms worsen, your pain is not controlled and you have a fever Follow-up/Referrals: Amaya Jung DO [Primary Care Provider] - 02/13/24 11:00 am [facility]) Jarret Cedillo DO [Physician] - 02/12/24 9:00 am ([facility] ) Diet: Regular Ambulatory Orders: Basic Metabolic Panel (Routine) Timeframe: 20240210 Location: Determined by Patient Ordered By: Mary Knight Attending Provider Instructions: You have been hospitalized for flank pain and nausea and found to have a small right sided kidney stone. You were provided IV hydration. Urine did NOT appear infected and you did not have elevated white count or fever to suggest infection at this time. Urology was consulted given elevated creatinine/kidney number for possible stent placement however we started flomax and urology is ok with having discharge planned with expulsive therapy/supportive care. Given acute kidney number elevation, would recommend to AVOID ibuprofen/motrin/aleve/naproxen at this time and we have sent short course of oxycodone for pain control and can continue tylenol up to 3000mg daily for additional control. As discussed, please continue bowel regimen over the counter to prevent constipation. Flomax once daily to help with stone passage has been started and continued at discharge. You should continue to stay hydrated and avoid excessive tea/caffeine as discussed. You should continue to strain your urine for passage and anaylsis and can have follow up with urology to ensure passage/need for any cystoscopy if unable to pass this on your own. Your vitamin D level was checked given the kidney stone and gallstones on imaging and was low. Vitamin D replacement has been sent to your pharmacy and should be continued daily as low vitamin D can lead to elevated calcium levels and while yours were normal they were borderline elevated and this can help with that as well as prevention of stone formation. Please follow up with primary care in 7-10 days from discharge after hospitalization. It has been a pleasure being a part of the medical team providing for you while you have been in the hospital. Take care! Pending Studies at Discharge: No Stand-Alone Forms: [facility], Smoking Cessation Medications and DC Order Prescriptions: New ondansetron HCl 4 mg tablet 4 mg PO TID PRN (Reason: nausea and vomiting) 5 Days Qty: 15 0RF oxycodone 5 mg Tablet 5 mg PO Q4H PRN (Reason: pain) Qty: 12 0RF cholecalciferol (vitamin D3) 25 mcg (1,000 unit) Capsule 25 mcg PO QAM Qty: 30 0RF tamsulosin [Flomax] 0.4 mg capsule 0.4 mg PO DAILY Qty: 7 0RF Continued acetaminophen [Tylenol Extra Strength] 500 mg Tablet 1,000 mg PO DIRECTED PRN (Reason: FEVER/PAIN) Held naproxen 500 mg tablet 500 mg PO BID PRN (Reason: pain) Hold Instructions: for now Discharge Orders: Discharge Order (Routine); Ordered 02/06/24 Ordered By: Mary Torres Admission Data Admit Date/Time: 02/05/24 18:24 Attending Provider: Kalpesh Valero Admit Provider: Suleiman Woodard Primary Care Provider: Amaya Jung Other Providers: Jason Jones; Jarret Cedillo Other Interventions: Discharge Summary Assessment (RN) Last Done: 02/06/24 16:54 Supervising Physician Co-Signing Physician Notes The patient was not seen by me. The chart was reviewed. Case discussed with RODRIGO Avelar. Agree with assessment and plan Coding Level of Care Code 09261 INP/OBS DISCH >30 MIN Diagnoses Ureterolithiasis N20.1 Acute right flank pain R10.9 Elevated transaminase level R74.01 Vitamin D deficiency E55.9 Acute kidney injury N17.9
[2024-02-06 17:07] LABS: BUN Creatinine Ratio 11.5 (10-20); Calcium 8.8 mg/dl (8.6-10.3); Creatinine Clr Calc Pharmacy 88.4 ml/min; Est GFR (African American) 66.7 ml/min; Est GFR (Non-African American) 57.5 ml/min; Potassium 4.2 mmol/L (3.5-5.1)
[2024-02-07] MEDS ORDERED: TAMSULOSIN HCL 0.4 MG CAP PO SCH (09:00)
[2024-02-07] MEDS ORDERED: CHOLECALCIFEROL 25 MCG (1000 UNITS) TAB PO SCH (09:00)
== END 2024-02-06 18:14 | disposition home or self-care (01) | DRG 694 ==
LOC: ED 13:26 → 3W 18:24 → SUATTDRO 18:24 → 3W 20:25